=== PATIENT | female | born 1950 | race Two or more races ===

== ENCOUNTER 2020-02-14 10:01 | Inpatient (IN) | payer MEDICARE ==
[~2020-02-14] VITALS: Ht 144.8 cm; Wt 55.3 kg
--- NOTE | 2020-02-14 10:15 | NUR ---
PATIENT WAS SEEN BY MD. SHE HAS BLISTERS, RASH AND PAIN ALONG HER CHEST AND BACK WHERE THE SKIN ABNORMALITY IS.
[2020-02-14] MEDS ORDERED: HYDR-894 PO (10:24)
[2020-02-14] MEDS ORDERED: AMLO10TA7 PO (10:24)
[2020-02-14] MEDS ORDERED: BENA20TA9 PO (10:24)
[2020-02-14] MEDS ORDERED: GABAPENTIN 100 MG CAPSULE PO ONE (10:30)
[2020-02-14] MEDS ORDERED: GABAPENTIN 100 MG CAPSULE ONE (10:30)
[2020-02-14] MEDS ORDERED: ACYCLOVIR 400 MG TABLET PO ONE (10:30)
[2020-02-14] MEDS ORDERED: ACYCLOVIR 200 MG CAPSULE ONE (10:31)
[2020-02-14 10:56] LABS: BASOPHILS # (AUTO) 0.1 K/uL (0.0-8.0); BASOPHILS % (AUTO) 2.5 % (0.0-2.0); EOSINOPHILS # (AUTO) 0.2 K/uL (0.0-0.7); EOSINOPHILS % (AUTO) 4.8 % (0.0-7.0); HEMATOCRIT 28.7 % (31.2-41.9); HEMOGLOBIN 9.6 g/dL (10.9-14.3); LYMPHOCYTES # (AUTO) 0.4 K/uL (20.0-40.0); MEAN CORPUSCULAR HEMOGLOBIN 29.3 uug (24.7-32.8); MEAN CORPUSCULAR HGB CONC 34 g/dL (32.3-35.6); MEAN CORPUSCULAR VOLUME 87.6 fL (75.5-95.3); MONOCYTES # (AUTO) 0.6 K/uL (2.0-10.0); MONOCYTES % (AUTO) 13.9 % (0.0-11.0); NEUTROPHILS # (AUTO) 3.2 K/uL (1.8-8.9); NEUTROPHILS % (AUTO) 70.8 % (38.5-71.5); PLATELET COUNT (AUTO) 232 K/uL (179-408); RED BLOOD CELL COUNT(AUTO) 3.28 MIL/uL (3.63-4.92); WHITE BLOOD COUNT (AUTO) 4.5 K/uL (3.8-11.8)
[2020-02-14 10:59] LABS: CARBON DIOXIDE 16 mmol/L (21-32); CHLORIDE 108 mmol/L (98-107); CREATININE 5.2 mg/dL (0.6-1.3); GLUCOSE 137 mg/dL (74-106); POTASSIUM 6.1 mmol/L (3.5-5.1); UREA NITROGEN, BLOOD 65 mg/dL (7-18)
--- NOTE | 2020-02-14 11:39 | NUR ---
PATIENT AND FAMILY AWARE OF PENDING ADMISSION TO HOSPITAL.
[2020-02-14] MEDS ORDERED: SODIUM POLYSTYRENE SULFONATE 15 G/60 ML LIQUID UDC ONE (11:43)
[2020-02-14] MEDS ORDERED: SODIUM POLYSTYRENE SULFONATE 15 G/60 ML LIQUID UDC PO ONE (11:45)
[2020-02-14 13:39] VITALS: BP 171/73
--- NOTE | 2020-02-14 14:00 | NUR ---
Patient in from E.[facility]. AAOX4. vitals stable no c/of chest pain. sbp above 160. Admitting physician notified of pt's arrival, and elevated sbp orders received and implemented. Awaiting admission orders.
[2020-02-14 14:03] VITALS: BP 169/73
[2020-02-14] MEDS: hydrALAZINE HCL 25 MG TABLET PO PRN (14:33)
[2020-02-14 16:00] VITALS: BP 163/76
[2020-02-14] MEDS ORDERED: ACETAMINOPHEN 325 MG TABLET PO PRN (16:45)
[2020-02-14] MEDS ORDERED: HYDROCODONE/APAP 5-325MG TABLET PO PRN (16:45)
[2020-02-14] MEDS ORDERED: BISACODYL 10 MG SUPP.RECT RC PRN (17:15)
[2020-02-14] MEDS ORDERED: ONDANSETRON 4 MG/2 ML VIAL IV PRN (17:15)
--- NOTE | 2020-02-14 19:30 | NUR ---
PATIENT RECEIVED LYING IN BED WATCHING TV. AAOX3. V/S STABLE. NO S/S OF ACUTE DISTRESS. PIV INTACT AND PATENT. DENIES ANY PAIN AT THIS TIME. SAFETY MEASURES IN PLACE. SHINGLES ASSESS ON UPPER BACK, ABDOMEN, AND BREAST AREA. BLISTERS ASSESSED. WILL CONTINUE TO MONITOR AND ASSESS.
[2020-02-14 20:03] VITALS: BP 123/72
[2020-02-14 20:09] VITALS: BP 123/72
[2020-02-14] MEDS: VALACYCLOVIR HCL 500 MG TABLET PO SCH (21:52)
[2020-02-14] MEDS: ISOSORBIDE MONONITRATE 60 MG TAB.SR.24H PO SCH (21:52)
[2020-02-14] MEDS: DOCUSATE SODIUM 100 MG CAPSULE PO SCH (21:52)
[2020-02-14] MEDS: CLONIDINE HCL 0.1 MG TABLET PO SCH (22:04)
[2020-02-15 00:25] VITALS: BP 142/59
[2020-02-15 01:32] LABS: *BILIRUBIN,URIN NEGATIVE (NEGATIVE); *CLARITY,URINE SLIGHTLY CLOUDY (CLEAR); *COLOR,URINE YELLOW (YELLOW); *KETONES,URINE NEGATIVE (NEGATIVE); *UROBILINOGEN,URINE 0.2 E.U./dl (NORMAL); LEUKOCYTE ESTERASE ,URINE NEGATIVE (NEGATIVE); NITRITE, URINE NEGATIVE (NEGATIVE); PH,URINE 5.5 (5.0-8.0); UGLUCOSE NEGATIVE (NEGATIVE)
[2020-02-15 01:39] LABS: *CREATININE,URINE 66.3 mg/dL (30-125); *URINE TOTAL PROTEIN RANDOM 126.8 mg/dL (<150/24HR)
[2020-02-15 01:51] LABS: *BLOOD, URINE TRACE INTACT (NEGATIVE)
[2020-02-15 04:27] VITALS: BP 150/67
[2020-02-15] MEDS: PANTOPRAZOLE SODIUM 40 MG TABLET.DR PO SCH (06:14)
[2020-02-15] MEDS: CLONIDINE HCL 0.1 MG TABLET PO SCH ×3 (06:14→22:00)
--- NOTE | 2020-02-15 06:22 | NUR ---
no s/s of acute distress. v/s stable. denies pain. NSR on tele monitor. PIV intact and patent. will continue to monitor and assess.
[2020-02-15 06:40] LABS: BASOPHILS # (AUTO) 0.1 K/uL (0.0-8.0); BASOPHILS % (AUTO) 1.3 % (0.0-2.0); EOSINOPHILS # (AUTO) 0.2 K/uL (0.0-0.7); HEMATOCRIT 24.2 % (31.2-41.9); HEMOGLOBIN 8.2 g/dL (10.9-14.3); LYMPHOCYTES # (AUTO) 0.4 K/uL (20.0-40.0); LYMPHOCYTES % (AUTO) 10.9 % (20.5-51.5); MEAN CORPUSCULAR HEMOGLOBIN 29.7 uug (24.7-32.8); MEAN CORPUSCULAR HGB CONC 34 g/dL (32.3-35.6); MEAN CORPUSCULAR VOLUME 87.7 fL (75.5-95.3); MONOCYTES # (AUTO) 0.4 K/uL (2.0-10.0); MONOCYTES % (AUTO) 11.3 % (0.0-11.0); NEUTROPHILS # (AUTO) 2.8 K/uL (1.8-8.9); NEUTROPHILS % (AUTO) 71.5 % (38.5-71.5); PLATELET COUNT (AUTO) 202 K/uL (179-408); RED BLOOD CELL COUNT(AUTO) 2.76 MIL/uL (3.63-4.92); WHITE BLOOD COUNT (AUTO) 3.9 K/uL (3.8-11.8)
[2020-02-15 07:04] LABS: ALANINE AMINOTRANSFERASE 15 U/L (14-59); ALKALINE PHOSPHATASE 42 U/L (50-136); ASPARTATE AMINOTRANSFERASE 14 U/L (15-37); BILIRUBIN,TOTAL 0.1 mg/dL (0.2-1.0); CARBON DIOXIDE 15 mmol/L (21-32); CHLORIDE 108 mmol/L (98-107); CREATINE KINASE, TOTAL 62 U/L (26-192); CREATININE 5.3 mg/dL (0.6-1.3); GLUCOSE 100 mg/dL (74-106); MAGNESIUM 2.2 mg/dL (1.8-2.4); PHOSPHOROUS 5.4 mg/dL (2.5-4.9); POTASSIUM 6.1 mmol/L (3.5-5.1); TOTAL PROTEIN, SERUM 5.7 g/dL (6.4-8.2); UREA NITROGEN, BLOOD 69 mg/dL (7-18)
[2020-02-15 07:06] LABS: IRON, SERUM 63 ug/dL (50-175)
[2020-02-15 07:09] LABS: CHOLESTEROL 106 mg/dL (<200); HDL CHOLESTEROL 54 mg/dL (40-60); TRIGLYCERIDES 76 MG/DL (30-150)
--- NOTE | 2020-02-15 07:30 | NUR ---
RECIEVED PT LYING IN BED, AWAKE, ALERT AND ORIENTEDX3. VERY PLEASANT LADY. DENIES OF ANY DISCOMFORTS AT THIS TIME. HR IS SR- SB, DENIES ANY CP. O2 SATURATION IS 98% ON RA. PT HAS SHINGLES LOCATED ON HER RIGHT SIDE OF HER CHEST GOING TO THE RIGHT SIDE OF HER MIDBACK, LESIONS ARE BIG BLISTERS. DENIES OF ANY PAIN AT THIS TIME. AFEBRILE.
[2020-02-15 07:38] LABS: BACTERIA,URINE RARE /HPF (NONE SEEN); SQUAMOUS EPITHELIAL CELL,UR FEW /HPF (NONE SEEN)
[2020-02-15 08:00] VITALS: BP 140/62
[2020-02-15 08:10] LABS: THYROID STIMULATING HORMONE 4.426 mIU/mL (0.358-3.740)
--- NOTE | 2020-02-15 08:30 | NUR ---
PT ATE GOOD.
--- NOTE | 2020-02-15 09:00 | NUR ---
SEEN AND EXAMINED BY LAVINIA WALDEN WITH NEW ORDERS.
[2020-02-15] MEDS: VALACYCLOVIR HCL 500 MG TABLET PO SCH (09:18)
[2020-02-15] MEDS: ISOSORBIDE MONONITRATE 60 MG TAB.SR.24H PO SCH ×2 (09:18→20:49)
[2020-02-15] MEDS: AMLODIPINE 10 MG TABLET PO SCH (09:19)
[2020-02-15] MEDS ORDERED: DEXTROSE 50% 50 ML DISP.SYRIN IV ONE (10:00)
[2020-02-15] MEDS ORDERED: INSULIN REGULAR, HUMAN 300 UNIT/3 ML VIAL IV ONE (10:00)
--- NOTE | 2020-02-15 10:00 | NUR ---
D50W SLOW IVP AND INSULIN 10UNITS SLOW IVP GIVEN VIA HL RIGHT HAND G22 ORDERED. K-6.1
--- NOTE | 2020-02-15 10:41 | NUR ---
SEEN AND EXAMINED BY SINDY FOR ID CONSULT.
[2020-02-15] MEDS: BLOOD SUGAR DIAGNOSTIC 1 EACH STRIP VI SCH ×3 (11:51→21:07)
[2020-02-15 12:00] VITALS: BP 135/61
[2020-02-15] MEDS: INSULIN REGULAR, HUMAN 300 UNIT/3 ML VIAL SQ PRN ×2 (12:43→21:04)
--- NOTE | 2020-02-15 13:00 | NUR ---
ULTRASOUND OF THE KIDNEY DONE AT THE BEDSIDE.
[2020-02-15] MEDS: ACYCLOVIR IV 500 MG in IV DEXTROSE 5% 100 ML IV SCH ×2 (14:07→22:05)
[2020-02-15 16:02] VITALS: BP 111/49
[2020-02-15] MEDS: glipiZIDE 5 MG TABLET PO SCH (16:18)
[2020-02-15 20:21] VITALS: BP 120/58
[2020-02-15] MEDS: DOCUSATE SODIUM 100 MG CAPSULE PO SCH (20:49)
--- NOTE | 2020-02-15 21:00 | NUR ---
insulin 6 units not given to this patient.
[2020-02-16 04:18] VITALS: BP 135/52
[2020-02-16] MEDS: CLONIDINE HCL 0.1 MG TABLET PO SCH ×3 (06:22→21:32)
[2020-02-16] MEDS: ACYCLOVIR IV 500 MG in IV DEXTROSE 5% 100 ML IV SCH (06:23)
[2020-02-16] MEDS: PANTOPRAZOLE SODIUM 40 MG TABLET.DR PO SCH (06:34)
[2020-02-16] MEDS: BLOOD SUGAR DIAGNOSTIC 1 EACH STRIP VI SCH ×4 (06:35→21:43)
[2020-02-16] MEDS: glipiZIDE 5 MG TABLET PO SCH ×2 (06:42→17:16)
--- NOTE | 2020-02-16 07:31 | NUR ---
patient resting comfortably. AA/OX3. no s/s of acute distress. v/s stable. clonidine held last night and wasted due to low diastolic BP. morning BS was 49. interventions provided and current BS at 151. norks administered x1 for pain. tolerated well. will continue to monitor.
[2020-02-16] MEDS ORDERED: VALACYCLOVIR HCL 500 MG TABLET PO SCH (09:00)
--- NOTE | 2020-02-16 09:00 | NUR ---
Patient is AAO x 3, NO acute distress. Vital signs are stable for patient. NO complain of pain at this time. patient noted with blister and redness on right upper back and right upper chest. Denies any cough or SOB. IV line started on left hand, 22guage. IV site intact patent. Skin kept clean and dry and will continue with care.
[2020-02-16] MEDS: ISOSORBIDE MONONITRATE 60 MG TAB.SR.24H PO SCH ×2 (10:53→21:31)
[2020-02-16] MEDS: AMLODIPINE 10 MG TABLET PO SCH (10:54)
--- NOTE | 2020-02-16 11:15 | NUR ---
Patient complained of Nausea, IV Zofran 4mg/2ml administered and tolerated. Patient also administered Tylenol 650mg PO 2 tabs for back pain. will continue with care.
[2020-02-16 12:00] VITALS: BP 133/57
[2020-02-16 15:22] LABS: A/G RATIO 1.4 (0.7-1.7); ALBUMIN 3.1 g/dL (2.9-4.4); ALPHA-1-GLOBULIN 0.2 g/dL (0.0-0.4); ALPHA-2-GLOBULIN 0.7 g/dL (0.4-1.0); BETA GLOBULIN 0.7 g/dL (0.7-1.3); GAMMA GLOBULIN 0.6 g/dL (0.4-1.8); GLOBULIN, TOTAL 2.2 g/dL (2.2-3.9); M-SPIKE Not Observed g/dL (Not Observed)
[2020-02-16 16:00] VITALS: BP 142/56
[2020-02-16 16:55] LABS: BASOPHILS % (AUTO) 0.6 % (0.0-2.0); EOSINOPHILS % (AUTO) 0.6 % (0.0-7.0); HEMATOCRIT 26.3 % (31.2-41.9); HEMOGLOBIN 8.7 g/dL (10.9-14.3); LYMPHOCYTES # (AUTO) 0.4 K/uL (20.0-40.0); LYMPHOCYTES % (AUTO) 7.8 % (20.5-51.5); MEAN CORPUSCULAR HEMOGLOBIN 28.6 uug (24.7-32.8); MEAN CORPUSCULAR HGB CONC 33 g/dL (32.3-35.6); MEAN CORPUSCULAR VOLUME 86.9 fL (75.5-95.3); MONOCYTES # (AUTO) 0.4 K/uL (2.0-10.0); MONOCYTES % (AUTO) 6.7 % (0.0-11.0); NEUTROPHILS # (AUTO) 4.4 K/uL (1.8-8.9); NEUTROPHILS % (AUTO) 84.3 % (38.5-71.5); PLATELET COUNT (AUTO) 211 K/uL (179-408); RED BLOOD CELL COUNT(AUTO) 3.03 MIL/uL (3.63-4.92); WHITE BLOOD COUNT (AUTO) 5.2 K/uL (3.8-11.8)
[2020-02-16 17:08] LABS: ALANINE AMINOTRANSFERASE 17 U/L (14-59); ALKALINE PHOSPHATASE 48 U/L (50-136); ASPARTATE AMINOTRANSFERASE 19 U/L (15-37); BILIRUBIN,TOTAL 0.2 mg/dL (0.2-1.0); CARBON DIOXIDE 17 mmol/L (21-32); CHLORIDE 103 mmol/L (98-107); CREATININE 5.6 mg/dL (0.6-1.3); GLUCOSE 60 mg/dL (74-106); MAGNESIUM 1.9 mg/dL (1.8-2.4); PHOSPHOROUS 5.8 mg/dL (2.5-4.9); POTASSIUM 5.1 mmol/L (3.5-5.1); TOTAL PROTEIN, SERUM 5.9 g/dL (6.4-8.2); UREA NITROGEN, BLOOD 71 mg/dL (7-18)
[2020-02-16] MEDS: MYCOPHENOLATE MOFETIL 250 MG CAPSULE PO SCH ×2 (17:16→21:34)
--- NOTE | 2020-02-16 19:33 | NUR ---
Patient resting comfortably at this time. Due evening meds administered as ordered and scheduled. NO c/o N/V at this time. End of shift report given to PM nurse and will continue with care.
[2020-02-16 20:00] VITALS: BP 162/61
--- NOTE | 2020-02-16 20:00 | NUR ---
Patient is awake and alert, oriented to self only, forgetful.
[2020-02-16] MEDS: DOCUSATE SODIUM 100 MG CAPSULE PO SCH (21:31)
--- NOTE | 2020-02-16 21:50 | NUR ---
Patient was given 2 juices and fruit cup after glucose check.
[2020-02-17 04:00] VITALS: BP 123/59
[2020-02-17] MEDS: PANTOPRAZOLE SODIUM 40 MG TABLET.DR PO SCH (06:22)
[2020-02-17] MEDS: ACYCLOVIR IV 500 MG in IV DEXTROSE 5% 100 ML IV SCH (06:22)
[2020-02-17] MEDS: DEXTROSE 50% 50 ML DISP.SYRIN IV PRN ×2 (06:40→21:41)
[2020-02-17 06:43] LABS: BASOPHILS % (AUTO) 0.3 % (0.0-2.0); EOSINOPHILS % (AUTO) 0.1 % (0.0-7.0); HEMATOCRIT 23.7 % (31.2-41.9); HEMOGLOBIN 8.2 g/dL (10.9-14.3); LYMPHOCYTES # (AUTO) 0.1 K/uL (20.0-40.0); LYMPHOCYTES % (AUTO) 1.3 % (20.5-51.5); MEAN CORPUSCULAR HEMOGLOBIN 29.7 uug (24.7-32.8); MEAN CORPUSCULAR HGB CONC 34 g/dL (32.3-35.6); MEAN CORPUSCULAR VOLUME 86.4 fL (75.5-95.3); MONOCYTES # (AUTO) 0.3 K/uL (2.0-10.0); MONOCYTES % (AUTO) 3.5 % (0.0-11.0); NEUTROPHILS # (AUTO) 7.1 K/uL (1.8-8.9); NEUTROPHILS % (AUTO) 94.8 % (38.5-71.5); PLATELET COUNT (AUTO) 197 K/uL (179-408); RED BLOOD CELL COUNT(AUTO) 2.75 MIL/uL (3.63-4.92); WHITE BLOOD COUNT (AUTO) 7.5 K/uL (3.8-11.8)
--- NOTE | 2020-02-17 06:43 | NUR ---
Patient initial blood glucose 35. Non-responsive to name or sternal rub. Administered Dextrose 50%. patient is awake and alert after two minutes.
[2020-02-17] MEDS: CLONIDINE HCL 0.1 MG TABLET PO SCH ×3 (06:45→21:06)
[2020-02-17] MEDS: BLOOD SUGAR DIAGNOSTIC 1 EACH STRIP VI SCH ×5 (06:49→21:30)
[2020-02-17 06:58] LABS: ALANINE AMINOTRANSFERASE 17 U/L (14-59); ALKALINE PHOSPHATASE 39 U/L (50-136); ASPARTATE AMINOTRANSFERASE 17 U/L (15-37); BILIRUBIN,TOTAL 0.1 mg/dL (0.2-1.0); CARBON DIOXIDE 15 mmol/L (21-32); CHLORIDE 104 mmol/L (98-107); CREATININE 5.7 mg/dL (0.6-1.3); PHOSPHOROUS 6.2 mg/dL (2.5-4.9); POTASSIUM 5.3 mmol/L (3.5-5.1); TOTAL PROTEIN, SERUM 5.8 g/dL (6.4-8.2); UREA NITROGEN, BLOOD 74 mg/dL (7-18)
--- NOTE | 2020-02-17 07:10 | NUR ---
Patient is awake and alert. Oriented to self and place. Coherent in conversation. Drinking water and took PO medications. Rechecked BS 153
--- NOTE | 2020-02-17 07:40 | NUR ---
Reported a glucose result of [address] Infante, with New Order to Discontinue Amaryl 1mg.
[2020-02-17 07:42] LABS: GLUCOSE 33 mg/dL (74-106)
--- NOTE | 2020-02-17 07:47 | NUR ---
Endorsed glucose results to day shift RN and charge nurse.
--- NOTE | 2020-02-17 07:50 | NUR ---
Patient in bed, awake and verbally responsive. No signs of distress noted. Afebrile. No complain of Pain or discomfort. recent BS is 153, Kept clean and comfortable. remains on contact Isolation for Shingles. Proper PPE strictly Observed. Will continue to monitor.
[2020-02-17] MEDS ORDERED: GLIMEPIRIDE 2 MG TABLET PO SCH (08:00)
[2020-02-17] MEDS: ISOSORBIDE MONONITRATE 60 MG TAB.SR.24H PO SCH ×2 (08:55→21:06)
[2020-02-17] MEDS: AMLODIPINE 10 MG TABLET PO SCH (08:56)
[2020-02-17] MEDS: MYCOPHENOLATE MOFETIL 250 MG CAPSULE PO SCH ×2 (08:56→21:06)
[2020-02-17 11:43] VITALS: BP 142/64
[2020-02-17 16:00] VITALS: BP 132/87
--- NOTE | 2020-02-17 19:10 | NUR ---
Received patient awake and eating her dinner. Oriented to self and place. No signs of acute distress. No c/o pain, n/v, or SOB. Left hand IV patent and intact. Safety measures initiated and will continue to monitor.
[2020-02-17 20:37] VITALS: BP 141/43
[2020-02-17] MEDS: DOCUSATE SODIUM 100 MG CAPSULE PO SCH (21:05)
--- NOTE | 2020-02-17 21:49 | NUR ---
Patient has a blood glucose of 31. Given 3 cups of juice, and fruit. Dr Martinez is on the floor ordered D5NS at 75 and a dose of D50 now. Rechecked glucose after the juice, 70, patient is more awake, talking to the family on the phone. Given D50 per order. Will recheck in 10 min.
[2020-02-17] MEDS: IV D5/ 0.9% NACL 1,000 ML IV PRN (21:55)
--- NOTE | 2020-02-17 22:30 | NUR ---
Dr Martinez notified of blood glucose 184 after D50%, ordered to continue monitoring continue D5NS infusion, no insulin at this time.
[2020-02-18] MEDS: ACYCLOVIR IV 500 MG in IV DEXTROSE 5% 100 ML IV SCH (05:43)
[2020-02-18] MEDS: CLONIDINE HCL 0.1 MG TABLET PO SCH ×3 (05:44→23:01)
[2020-02-18 06:10] VITALS: BP 140/51
[2020-02-18] MEDS: PANTOPRAZOLE SODIUM 40 MG TABLET.DR PO SCH (06:30)
[2020-02-18] MEDS: BLOOD SUGAR DIAGNOSTIC 1 EACH STRIP VI SCH ×5 (06:56→21:16)
--- NOTE | 2020-02-18 07:00 | NUR ---
Patient lying in bed, awake, alert, and oriented. IV right forearm intact and patent. Bed in lowest position, call penaloza within reach, safety measures endorsed to oncoming nurse.
--- NOTE | 2020-02-18 07:15 | NUR ---
Patient AM BS of 46 was given juice and ate bread. Rechecked BS resulted 92
[2020-02-18] MEDS: ISOSORBIDE MONONITRATE 60 MG TAB.SR.24H PO SCH ×2 (08:25→21:14)
[2020-02-18] MEDS: MYCOPHENOLATE MOFETIL 250 MG CAPSULE PO SCH ×2 (08:25→21:14)
[2020-02-18] MEDS: AMLODIPINE 10 MG TABLET PO SCH (08:25)
--- NOTE | 2020-02-18 11:20 | NUR ---
PATIENT SEEN AND EXAMINED BY DR HUERTA WITH NEW ORDERS AND NOTED
--- NOTE | 2020-02-18 11:24 | NUR ---
BLOOD SUGAR AT THIS TIME IS 54 PATIENT IS AWAKE ALERT AND ORIENTED NO S/S OF HYPOGLYCEMIC REACTIONS AT THIS TIME MILK AND APPLE SAUCE GIVEN WILL CONTINUE TO OBSERVE.
[2020-02-18 12:00] VITALS: BP 118/53
--- NOTE | 2020-02-18 12:00 | NUR ---
BLOOD SUGAR RECHECKED AND ITS 80 LUNCH SERVED AWAKE ALERT AND ORIENTED WILL CONTINUE TO OBSERVE.
[2020-02-18 12:08] LABS: BASOPHILS % (AUTO) 0.2 % (0.0-2.0); EOSINOPHILS # (AUTO) 0.1 K/uL (0.0-0.7); EOSINOPHILS % (AUTO) 1.4 % (0.0-7.0); HEMOGLOBIN 8.1 g/dL (10.9-14.3); LYMPHOCYTES # (AUTO) 0.6 K/uL (20.0-40.0); LYMPHOCYTES % (AUTO) 9.2 % (20.5-51.5); MEAN CORPUSCULAR HGB CONC 34 g/dL (32.3-35.6); MEAN CORPUSCULAR VOLUME 86.4 fL (75.5-95.3); MONOCYTES # (AUTO) 0.5 K/uL (2.0-10.0); MONOCYTES % (AUTO) 7.3 % (0.0-11.0); NEUTROPHILS # (AUTO) 5.3 K/uL (1.8-8.9); NEUTROPHILS % (AUTO) 81.9 % (38.5-71.5); PLATELET COUNT (AUTO) 223 K/uL (179-408); RED BLOOD CELL COUNT(AUTO) 2.78 MIL/uL (3.63-4.92); WHITE BLOOD COUNT (AUTO) 6.5 K/uL (3.8-11.8)
[2020-02-18 12:22] LABS: ALANINE AMINOTRANSFERASE 20 U/L (14-59); ALKALINE PHOSPHATASE 41 U/L (50-136); ASPARTATE AMINOTRANSFERASE 18 U/L (15-37); BILIRUBIN,TOTAL 0.2 mg/dL (0.2-1.0); CARBON DIOXIDE 15 mmol/L (21-32); CHLORIDE 100 mmol/L (98-107); CREATININE 5.6 mg/dL (0.6-1.3); GLUCOSE 72 mg/dL (74-106); MAGNESIUM 1.8 mg/dL (1.8-2.4); PHOSPHOROUS 5.6 mg/dL (2.5-4.9); POTASSIUM 5.3 mmol/L (3.5-5.1); TOTAL PROTEIN, SERUM 6.1 g/dL (6.4-8.2); UREA NITROGEN, BLOOD 70 mg/dL (7-18)
[2020-02-18] MEDS: IV D5/ 0.9% NACL 1,000 ML IV PRN (13:36)
[2020-02-18 16:00] VITALS: BP 120/57
--- NOTE | 2020-02-18 16:25 | NUR ---
BLOOD SUGAR IS 38 PATIENT IS ALERT AND VERBALLY RESPONSIVE MILK AND APPLE SAUCE GIVEN AND RECHECKED AT 1654 AND ITS 45 SO MD NOTIFIED AND STAT LAB ORDERED.
--- NOTE | 2020-02-18 17:03 | NUR ---
STAT LAB DONE ORDERED AWAITING FOR RESULT
--- NOTE | 2020-02-18 17:36 | NUR ---
PER LAB THE RESULT AT THE TIME THEY FLO THE BLOOD WAS 44 BUT PATIENT HAS ALREADY STARTED EATING DINNER ATE PART OF HER EGG SAND WISH FRUIT CUP AND MILK SO I HAD TO RECHECK HER BLOOD SUGAR AGAIN BEFIRE GIVING HER THE D50 AND BLOOD SUGAR AT THIS TIME IS 64 SO I WAS UNABLE TO GIVE THE D50 BECAUSE THE PARAMETER FOR THE D60 IS LESS THAT [address] GARCIA AND LEFT HIM A MESSAGE PATIENT REMAINS ALERT STILL TRYING TO EAT HER DINNER BUT HER APPETITE IS POOR NEEDS LOTS OF ENCOURAGEMENTS TO EAT WILL CONTINUE TO OBSERVE.
[2020-02-18 20:31] VITALS: BP 126/49
[2020-02-18] MEDS: DOCUSATE SODIUM 100 MG CAPSULE PO SCH (21:14)
[2020-02-19] MEDS: IV D5/ 0.9% NACL 1,000 ML IV PRN (00:10)
[2020-02-19] MEDS: DEXTROSE 50% 50 ML DISP.SYRIN IV PRN (02:22)
--- NOTE | 2020-02-19 03:00 | NUR ---
trina peres np ordered IVF D5 TO RUN AT 75CC/HR CONTINUOUS. STOP ORDER FOR D5NS AT 75ML/HR. NO CHANGES TO ACHS. LOW BLOOD SUGAR REPORTED.
[2020-02-19] MEDS: IV D5W 1000ML 1,000 ML IV PRN ×2 (03:02→21:50)
[2020-02-19 05:46] VITALS: BP 141/63
[2020-02-19] MEDS: PANTOPRAZOLE SODIUM 40 MG TABLET.DR PO SCH (06:02)
[2020-02-19] MEDS: CLONIDINE HCL 0.1 MG TABLET PO SCH ×3 (06:02→22:54)
--- NOTE | 2020-02-19 06:05 | NUR ---
spoke with sean in pharmacy regarding abx acyclovir IV 500mg due at 0600. medication unavailable. will be available once pharmacy is able to bring it up. Addendum: 02/19/20 at 0700 by EDUAR BUTLER RN medication received and administering.
--- NOTE | 2020-02-19 06:25 | NUR ---
patient slept throughout the night. AAOX2. no s/s of acute distres noted. v/s stable. RAC PIV remain patent and intact. IVF and antibiotics administered. NO ASE of IV ABX. on RA AT 96%. all needs met. safety measures met and call light within reach. patient not eating snacks or juice placed in front of her for prevention of low BS. reports to RN, "I do not really feel like eating these days." will continue to monitor and assess.
[2020-02-19] MEDS: BLOOD SUGAR DIAGNOSTIC 1 EACH STRIP VI SCH ×4 (06:32→21:35)
[2020-02-19] MEDS: ACYCLOVIR IV 500 MG in IV DEXTROSE 5% 100 ML IV SCH (06:59)
--- NOTE | 2020-02-19 08:00 | NUR ---
Pt is in no acute distress. Pt has poor appetite no really eating her food during breakfast. PT states shes doesn't have any appetite. Noted shingles/ redness on front of her chest wall right breast are with serous drainage and Shingles/ redness on right back with serous drainage as well. Pt IV infusing as ordered. Call light is within reach.
[2020-02-19] MEDS: ISOSORBIDE MONONITRATE 60 MG TAB.SR.24H PO SCH ×2 (09:05→21:12)
[2020-02-19] MEDS: AMLODIPINE 10 MG TABLET PO SCH (09:06)
[2020-02-19] MEDS: MYCOPHENOLATE MOFETIL 250 MG CAPSULE PO SCH ×2 (09:06→21:11)
--- NOTE | 2020-02-19 11:00 | NUR ---
Ambulated pt to bathroom. Maintained isolation for shingle. Pt continent of bladder and bowel.
[2020-02-19 12:00] VITALS: BP 139/57
[2020-02-19] MEDS: INSULIN REGULAR, HUMAN 300 UNIT/3 ML VIAL SQ PRN (12:45)
[2020-02-19 16:00] VITALS: BP 151/67
--- NOTE | 2020-02-19 18:20 | NUR ---
Spoke with trina ALVAREZ gearcase assembler covering 3rd floor ms. Pt is ok to go back to [facility] living. [facility] Cristel Najera pricing coordinator in [facility]. Addendum: 02/19/20 at 1834 by CORTNEY HESTER RN WRONG PATIENT
--- NOTE | 2020-02-19 18:34 | NUR ---
Pt notified dr arango of pt not eating and poor appetite. New order for Megace received and given. Pt is in no acute distress.
[2020-02-19] MEDS: MEGESTROL ACETATE 400 MG/10 ML LIQUID UDC PO SCH (18:50)
[2020-02-19] MEDS: DOCUSATE SODIUM 100 MG CAPSULE PO SCH (21:11)
[2020-02-19 21:12] VITALS: BP 145/56
--- NOTE | 2020-02-20 05:39 | NUR ---
unable to obtain supplies for shingles culture. omar in laboratory will call when supply kit is obtained.
[2020-02-20] MEDS: CLONIDINE HCL 0.1 MG TABLET PO SCH ×3 (06:02→21:00)
[2020-02-20] MEDS: PANTOPRAZOLE SODIUM 40 MG TABLET.DR PO SCH (06:02)
[2020-02-20 06:04] VITALS: BP 176/72
--- NOTE | 2020-02-20 06:16 | NUR ---
patient AAOX3. no s/s of acute distress noted. v/s stable except for high blood pressure in the morning. medication administered for htn. no ASE and tolerated well. RFA PIV intact and patent. BS not covered last night due to frequent drop of BS during the previous night. safety precautions in place. will continue to monitor and assess.
[2020-02-20] MEDS: BLOOD SUGAR DIAGNOSTIC 1 EACH STRIP VI SCH ×4 (06:34→21:17)
[2020-02-20] MEDS: MYCOPHENOLATE MOFETIL 250 MG CAPSULE PO SCH ×2 (09:09→20:59)
[2020-02-20] MEDS: ISOSORBIDE MONONITRATE 60 MG TAB.SR.24H PO SCH ×2 (09:09→20:58)
[2020-02-20] MEDS: AMLODIPINE 10 MG TABLET PO SCH (09:10)
[2020-02-20] MEDS: MEGESTROL ACETATE 400 MG/10 ML LIQUID UDC PO SCH (09:12)
[2020-02-20] MEDS: METOPROLOL SUCCINATE XL 50 MG TAB.SR.24H PO SCH (10:41)
[2020-02-20 11:30] VITALS: BP 152/62
[2020-02-20] MEDS: IV D5W 1000ML 1,000 ML IV PRN (11:39)
[2020-02-20 12:10] LABS: BASOPHILS % (AUTO) 0.6 % (0.0-2.0); EOSINOPHILS # (AUTO) 0.3 K/uL (0.0-0.7); EOSINOPHILS % (AUTO) 5.1 % (0.0-7.0); HEMATOCRIT 24.2 % (31.2-41.9); HEMOGLOBIN 8.1 g/dL (10.9-14.3); LYMPHOCYTES # (AUTO) 0.5 K/uL (20.0-40.0); LYMPHOCYTES % (AUTO) 10.3 % (20.5-51.5); MEAN CORPUSCULAR HEMOGLOBIN 28.6 uug (24.7-32.8); MEAN CORPUSCULAR HGB CONC 33 g/dL (32.3-35.6); MEAN CORPUSCULAR VOLUME 85.5 fL (75.5-95.3); MONOCYTES # (AUTO) 0.6 K/uL (2.0-10.0); MONOCYTES % (AUTO) 11.5 % (0.0-11.0); NEUTROPHILS # (AUTO) 3.8 K/uL (1.8-8.9); NEUTROPHILS % (AUTO) 72.5 % (38.5-71.5); PLATELET COUNT (AUTO) 194 K/uL (179-408); RED BLOOD CELL COUNT(AUTO) 2.83 MIL/uL (3.63-4.92); WHITE BLOOD COUNT (AUTO) 5.3 K/uL (3.8-11.8)
[2020-02-20] MEDS: INSULIN REGULAR, HUMAN 300 UNIT/3 ML VIAL SQ PRN ×2 (12:12→17:56)
[2020-02-20 12:13] LABS: ALANINE AMINOTRANSFERASE 18 U/L (14-59); ALKALINE PHOSPHATASE 39 U/L (50-136); ASPARTATE AMINOTRANSFERASE 16 U/L (15-37); BILIRUBIN,TOTAL 0.2 mg/dL (0.2-1.0); CARBON DIOXIDE 14 mmol/L (21-32); CHLORIDE 98 mmol/L (98-107); CREATININE 4.9 mg/dL (0.6-1.3); GLUCOSE 153 mg/dL (74-106); MAGNESIUM 1.7 mg/dL (1.8-2.4); PHOSPHOROUS 6.2 mg/dL (2.5-4.9); POTASSIUM 5.4 mmol/L (3.5-5.1); TOTAL PROTEIN, SERUM 5.4 g/dL (6.4-8.2); UREA NITROGEN, BLOOD 69 mg/dL (7-18)
[2020-02-20 15:57] VITALS: BP 159/71
[2020-02-20 17:58] VITALS: BP 150/68
--- NOTE | 2020-02-20 20:00 | NUR ---
Received patient awake and alert. Patient shows no signs or symptoms of distress at this time. Vital signs stable. Wound on back appears dry at this time. Bed set to lowest position. Call light within reach. Side rails X2 are up. Will continue to monitor patient.
[2020-02-20] MEDS: IV D5/ 0.9% NACL 1,000 ML IV PRN (20:15)
[2020-02-20 20:36] VITALS: BP 144/61
[2020-02-20] MEDS: DOCUSATE SODIUM 100 MG CAPSULE PO SCH (20:59)
[2020-02-21] MEDS: CLONIDINE HCL 0.1 MG TABLET PO SCH ×3 (06:28→21:20)
[2020-02-21] MEDS: PANTOPRAZOLE SODIUM 40 MG TABLET.DR PO SCH (06:28)
[2020-02-21] MEDS: BLOOD SUGAR DIAGNOSTIC 1 EACH STRIP VI SCH ×4 (06:35→21:30)
[2020-02-21 06:39] VITALS: BP 122/65
--- NOTE | 2020-02-21 07:04 | NUR ---
Patient shows no signs or symptoms of distress at this time. Vital signs stable. Will endorse patient to day shift nurse in stable condition.
--- NOTE | 2020-02-21 07:45 | NUR ---
Received patient in bed awake, alert and oriented. No signs of respiratory distress noted, patient is saturating well on room air. IV intact and patent on right forearm 20 gauge. Patient reports no pain at this time. Safety measures in place, bed in lowest position and locked, call light and patient belongings are within reach. Will continue to observe and monitor.
[2020-02-21] MEDS: MYCOPHENOLATE MOFETIL 250 MG CAPSULE PO SCH ×2 (09:13→21:22)
[2020-02-21] MEDS: MEGESTROL ACETATE 400 MG/10 ML LIQUID UDC PO SCH (09:14)
[2020-02-21] MEDS: ISOSORBIDE MONONITRATE 60 MG TAB.SR.24H PO SCH ×2 (09:16→21:20)
[2020-02-21] MEDS: AMLODIPINE 10 MG TABLET PO SCH (09:16)
[2020-02-21] MEDS: METOPROLOL SUCCINATE XL 50 MG TAB.SR.24H PO SCH (09:16)
[2020-02-21 11:33] VITALS: BP 146/57
[2020-02-21] MEDS: IV D5/ 0.9% NACL 1,000 ML IV PRN (15:46)
[2020-02-21 16:00] VITALS: BP 137/53
[2020-02-21 19:32] LABS: BASOPHILS % (AUTO) 0.4 % (0.0-2.0); EOSINOPHILS # (AUTO) 0.1 K/uL (0.0-0.7); EOSINOPHILS % (AUTO) 2.8 % (0.0-7.0); LYMPHOCYTES # (AUTO) 0.5 K/uL (20.0-40.0); LYMPHOCYTES % (AUTO) 13.4 % (20.5-51.5); MEAN CORPUSCULAR HEMOGLOBIN 28.5 uug (24.7-32.8); MEAN CORPUSCULAR HGB CONC 33 g/dL (32.3-35.6); MEAN CORPUSCULAR VOLUME 85.1 fL (75.5-95.3); MONOCYTES # (AUTO) 0.7 K/uL (2.0-10.0); NEUTROPHILS # (AUTO) 2.7 K/uL (1.8-8.9); NEUTROPHILS % (AUTO) 66.4 % (38.5-71.5); PLATELET COUNT (AUTO) 162 K/uL (179-408); WHITE BLOOD COUNT (AUTO) 4.1 K/uL (3.8-11.8)
[2020-02-21 19:37] LABS: RED BLOOD CELL COUNT(AUTO) 2.35 MIL/uL (3.63-4.92)
[2020-02-21 19:42] LABS: ALANINE AMINOTRANSFERASE 15 U/L (14-59); ALKALINE PHOSPHATASE 35 U/L (50-136); ASPARTATE AMINOTRANSFERASE 13 U/L (15-37); BILIRUBIN,TOTAL 0.2 mg/dL (0.2-1.0); CARBON DIOXIDE 15 mmol/L (21-32); CHLORIDE 103 mmol/L (98-107); CREATININE 4.5 mg/dL (0.6-1.3); GLUCOSE 148 mg/dL (74-106); PHOSPHOROUS 5.7 mg/dL (2.5-4.9); POTASSIUM 5.7 mmol/L (3.5-5.1); UREA NITROGEN, BLOOD 66 mg/dL (7-18)
--- NOTE | 2020-02-21 19:54 | NUR ---
PATIENT CALM AND COMFORTABLE THROUGH OUT SHIFT WITH NO SIGNS OF DISTRESS; PATIENT WITH STABLE VITAL SIGNS. REPORT GIVEN TO ONCOMING NURSE.
[2020-02-21 19:55] LABS: MAGNESIUM 1.2 mg/dL (1.8-2.4)
[2020-02-21 20:00] VITALS: BP 133/57
--- NOTE | 2020-02-21 20:00 | NUR ---
Received patient awake and alert. Patient shows no signs or symptoms of distress at this time. Vital signs stable. Contact isolation for shingles. Bed set to lowest position. Call light within reach. Side rails X2 are up. Will continue to monitor patient.
--- NOTE | 2020-02-21 20:09 | NUR ---
PATIENT REFUSED INSULIN COVERAGE.
--- NOTE | 2020-02-21 20:18 | NUR ---
Received critical labs for H/H - 6.7/20.0. Also received critical magnesium level of 1.2. Dr. Rock notified and received orders.
[2020-02-21 20:36] LABS: HEMOGLOBIN 6.7 g/dL (10.9-14.3)
--- NOTE | 2020-02-21 20:38 | NUR ---
Spoke to Pedro from lab. Patient to be redrawn for type and screen. Patient is alert and oriented and is able to sign consent. Consent signed by patient. Awaiting for results.
[2020-02-21] MEDS: MAGNESIUM SULFATE/D5W 100 ML IV SCH ×3 (20:49→23:24)
[2020-02-21 21:10] LABS: LYMPHOCYTES % (MANUAL) 17 % (20-40); MONOCYTES % (MANUAL) 8 % (2-10); NEUTROPHILS % (MANUAL) 75 % (42-75)
[2020-02-21] MEDS: DOCUSATE SODIUM 100 MG CAPSULE PO SCH (21:20)
[2020-02-21] MEDS ORDERED: MAGNESIUM SULFATE/D5W 300 ML ONE (21:24)
[2020-02-21 23:01] VITALS: BP 138/57
--- NOTE | 2020-02-21 23:07 | NUR ---
Blood transfusion has started. Verified with NYLA Shelton. Vital signs stable. Will check vital signs in 15 mins. Will continue to monitor patient.
[2020-02-21 23:16] VITALS: BP 145/61
[2020-02-21] MEDS: INSULIN REGULAR, HUMAN 300 UNIT/3 ML VIAL SQ PRN (23:31)
[2020-02-22] VITALS (7 sets, daily range): BP systolic 138–165; BP diastolic 57–65
[2020-02-22] MEDS: MAGNESIUM SULFATE/D5W 100 ML IV SCH (00:31)
--- NOTE | 2020-02-22 01:52 | NUR ---
Blisters opened on right chest. Photos taken. Wound cleaned with NS and dressing was applied. Wound care consult ordered for evaluation
--- NOTE | 2020-02-22 02:20 | NUR ---
Blood transfusion completed. No signs or symptoms of distress. Will continue to monitor patient.
[2020-02-22] MEDS: CLONIDINE HCL 0.1 MG TABLET PO SCH ×2 (05:25→15:13)
[2020-02-22] MEDS: PANTOPRAZOLE SODIUM 40 MG TABLET.DR PO SCH (06:25)
[2020-02-22] MEDS: hydrALAZINE HCL 25 MG TABLET PO PRN (06:26)
[2020-02-22] MEDS: BLOOD SUGAR DIAGNOSTIC 1 EACH STRIP VI SCH ×2 (06:31→11:49)
--- NOTE | 2020-02-22 06:33 | NUR ---
Patient shows no signs or symptoms of distress at this time. Blood pressure rechecked and is 160/61. PRN hydralazine given as per MD order. Will continue to monitor patient.
[2020-02-22 06:37] LABS: BASOPHILS % (AUTO) 0.3 % (0.0-2.0); EOSINOPHILS # (AUTO) 0.2 K/uL (0.0-0.7); EOSINOPHILS % (AUTO) 3.5 % (0.0-7.0); HEMATOCRIT 26.1 % (31.2-41.9); HEMOGLOBIN 8.9 g/dL (10.9-14.3); LYMPHOCYTES # (AUTO) 0.7 K/uL (20.0-40.0); LYMPHOCYTES % (AUTO) 13.3 % (20.5-51.5); MEAN CORPUSCULAR HEMOGLOBIN 29.1 uug (24.7-32.8); MEAN CORPUSCULAR HGB CONC 34 g/dL (32.3-35.6); MEAN CORPUSCULAR VOLUME 85.4 fL (75.5-95.3); MONOCYTES # (AUTO) 0.8 K/uL (2.0-10.0); MONOCYTES % (AUTO) 15.3 % (0.0-11.0); NEUTROPHILS # (AUTO) 3.8 K/uL (1.8-8.9); NEUTROPHILS % (AUTO) 67.6 % (38.5-71.5); PLATELET COUNT (AUTO) 169 K/uL (179-408); RED BLOOD CELL COUNT(AUTO) 3.06 MIL/uL (3.63-4.92); WHITE BLOOD COUNT (AUTO) 5.6 K/uL (3.8-11.8)
[2020-02-22 06:50] LABS: CARBON DIOXIDE 13 mmol/L (21-32); CHLORIDE 103 mmol/L (98-107); CREATININE 4.2 mg/dL (0.6-1.3); GLUCOSE 103 mg/dL (74-106); PHOSPHOROUS 5.4 mg/dL (2.5-4.9); POTASSIUM 5.7 mmol/L (3.5-5.1); UREA NITROGEN, BLOOD 62 mg/dL (7-18)
[2020-02-22 07:09] LABS: VARICELLA ZOSTER IgG <135 index (Immune >165)
[2020-02-22] MEDS ORDERED: SODIUM POLYSTYRENE SULFONATE 15 G/60 ML LIQUID UDC PO ONE (08:00)
[2020-02-22] MEDS ORDERED: CLONIDINE HCL 0.1 MG TABLET PO PRN (08:00)
--- NOTE | 2020-02-22 08:00 | NUR ---
Pt received to care dozing off, wakes up easily. IV fluids are running (D5Ns at 60cc/hr). right forearm heplock is intact. Breathing is none labored. No distress. Side rails up, bed alarm is on.
[2020-02-22] MEDS: MYCOPHENOLATE MOFETIL 250 MG CAPSULE PO SCH (08:54)
[2020-02-22] MEDS: ISOSORBIDE MONONITRATE 60 MG TAB.SR.24H PO SCH (08:55)
[2020-02-22] MEDS: METOPROLOL SUCCINATE XL 50 MG TAB.SR.24H PO SCH (08:55)
[2020-02-22] MEDS: AMLODIPINE 10 MG TABLET PO SCH (08:56)
[2020-02-22] MEDS: MEGESTROL ACETATE 400 MG/10 ML LIQUID UDC PO SCH (08:56)
[2020-02-22] MEDS ORDERED: MYCO250C PO (11:32)
[2020-02-22] MEDS: INSULIN REGULAR, HUMAN 300 UNIT/3 ML VIAL SQ PRN (12:06)
--- NOTE | 2020-02-22 17:52 | NUR ---
Pt is being discharged home with her . VS stable, no distress. IV line removed, ID bracelets are taken off. Discharge teaching is done and pt verbalizes understanding.
== END 2020-02-22 18:27 | disposition home or self-care (01) | DRG 595 ==
LOC: ER 10:01 → TELE3 12:39 → MEDSURG3 02-15 20:31
PROVIDERS: ADMIT Internal Medicine; ATTEND Nurse Practitioner Acute Care
PROC: 30233N1 Transfusion of Nonautologous Red Blood Cells into Peripheral Vein, Percutaneous Approach (ICD-10-PCS; principal; 2020-02-21)
DX: B02.9 Zoster without complications (principal); N17.0 Acute kidney failure with tubular necrosis; E87.2 Acidosis; N18.4 Chronic kidney disease, stage 4 (severe); E87.1 Hypo-osmolality and hyponatremia; I13.0 Hypertensive heart and chronic kidney disease with heart failure and stage 1 through stage 4 chronic kidney disease, or unspecified chronic kidney disease; N26.9 Renal sclerosis, unspecified; E87.5 Hyperkalemia; I50.9 Heart failure, unspecified; R53.1 Weakness; Z79.899 Other long term (current) drug therapy; E11.65 Type 2 diabetes mellitus with hyperglycemia; E11.649 Type 2 diabetes mellitus with hypoglycemia without coma; E11.22 Type 2 diabetes mellitus with diabetic chronic kidney disease; E78.5 Hyperlipidemia, unspecified; D63.1 Anemia in chronic kidney disease; N28.1 Cyst of kidney, acquired; Z79.84 Long term (current) use of oral hypoglycemic drugs
CPT/HCPCS: 36415; 70030-TC; 71045; 76770; 83550; 83735; 83970; 84100; 84155; 84156; 84165; 84300; 84443; 85025; 86850; 86900; 86901; 86920; 93005; 93307; A4663; G0378; J0133; J1815; J2405; J3475; J3490; J7030; J7040; J7042; J7050; J7060; J7517; J8999; P9016-BL; P9021

== ENCOUNTER 2020-03-08 12:52 | Inpatient (IN) | payer MEDICARE ==
[~2020-03-08] VITALS: Ht 152.4 cm; Wt 68.2 kg
[~2020-03-08 12:52] MED LIST: AMLO10TA7 PO; BENA20TA9 PO; HYDR-894 PO; MYCO250C PO
--- NOTE | 2020-03-08 12:55 | NUR ---
DR Borrero at the bedside for MSE.
[2020-03-08] MEDS ORDERED: IV NORMAL SALINE 500 ML BAG IV ONE (13:00)
--- NOTE | 2020-03-08 13:10 | NUR ---
Pt has PICC line on LT upper ext, but unable to flush or draw blood. made aware.
[2020-03-08] MEDS ORDERED: ATOR10TA PO (13:12)
[2020-03-08] MEDS ORDERED: LEVO25TA9 PO (13:12)
[2020-03-08] MEDS ORDERED: LEVO75TA7 PO (13:13)
[2020-03-08] MEDS ORDERED: ATOR20TA PO (13:13)
[2020-03-08] MEDS ORDERED: ONDANSETRON 4 MG/2 ML VIAL ONE (13:25)
[2020-03-08] MEDS ORDERED: ACETAMINOPHEN 650 MG SUPP.RECT RC ONE ×2 (13:43→13:45)
[2020-03-08 13:47] LABS: BASOPHILS # (AUTO) 0.3 K/uL (0.0-8.0); BASOPHILS % (AUTO) 3.4 % (0.0-2.0); EOSINOPHILS # (AUTO) 0.2 K/uL (0.0-0.7); EOSINOPHILS % (AUTO) 2.6 % (0.0-7.0); HEMOGLOBIN 10.5 g/dL (10.9-14.3); LYMPHOCYTES # (AUTO) 0.5 K/uL (20.0-40.0); MEAN CORPUSCULAR HEMOGLOBIN 29.2 uug (24.7-32.8); MEAN CORPUSCULAR HGB CONC 33 g/dL (32.3-35.6); MONOCYTES # (AUTO) 0.8 K/uL (2.0-10.0); MONOCYTES % (AUTO) 10.6 % (0.0-11.0); NEUTROPHILS # (AUTO) 5.9 K/uL (1.8-8.9); NEUTROPHILS % (AUTO) 76.4 % (38.5-71.5); PLATELET COUNT (AUTO) 585 K/uL (179-408); WHITE BLOOD COUNT (AUTO) 7.8 K/uL (3.8-11.8)
[2020-03-08 13:53] LABS: CARBON DIOXIDE 23 mmol/L (21-32); CHLORIDE 100 mmol/L (98-107); CREATININE 5.3 mg/dL (0.6-1.3); GLUCOSE 71 mg/dL (74-106); POTASSIUM 3.7 mmol/L (3.5-5.1); UREA NITROGEN, BLOOD 65 mg/dL (7-18)
[2020-03-08] MEDS ORDERED: CEFTRIAXONE /D5W 50ML IVPB **ER PYXIS IV ONE (13:56)
[2020-03-08] MEDS ORDERED: AZITHROMYCIN 500MG/ D5W 250ML IVPB **ER PYXIS ONLY IV ONE (13:56)
[2020-03-08] MEDS ORDERED: CEFTRIAXONE 2 G in IV DEXTROSE 5% 100 ML IV ONE (14:00)
[2020-03-08] MEDS ORDERED: AZITHROMYCIN IV 500 MG in IV DEXTROSE 5% 250 ML IV ONE (14:00)
[2020-03-08 14:06] LABS: ALANINE AMINOTRANSFERASE 20 U/L (14-59); ALKALINE PHOSPHATASE 75 U/L (50-136); ASPARTATE AMINOTRANSFERASE 32 U/L (15-37); BILIRUBIN,DIRECT 0.2 mg/dL (0.0-0.2); BILIRUBIN,TOTAL 0.8 mg/dL (0.2-1.0); TOTAL PROTEIN, SERUM 6.9 g/dL (6.4-8.2)
--- NOTE | 2020-03-08 14:08 | NUR ---
Pt is more awake and verbally responsive.
[2020-03-08 14:34] LABS: *BILIRUBIN,URIN NEGATIVE (NEGATIVE); *BLOOD, URINE 2+ (NEGATIVE); *CLARITY,URINE SLIGHTLY CLOUDY (CLEAR); *COLOR,URINE YELLOW (YELLOW); *KETONES,URINE 2+ (NEGATIVE); *UROBILINOGEN,URINE 0.2 E.U./dl (NORMAL); LEUKOCYTE ESTERASE ,URINE NEGATIVE (NEGATIVE); NITRITE, URINE NEGATIVE (NEGATIVE); UGLUCOSE NEGATIVE (NEGATIVE)
[2020-03-08] MEDS ORDERED: MAGNESIUM HYDROXIDE 30 ML LIQUID UDC PO PRN (16:30)
[2020-03-08] MEDS ORDERED: CEFTRIAXONE 1 G in IV DEXTROSE 5% 50 ML IV SCH (16:30)
[2020-03-08] MEDS ORDERED: HYDROCODONE/APAP 5-325MG TABLET PO PRN (16:30)
[2020-03-08] MEDS ORDERED: AZITHROMYCIN IV 500 MG in IV DEXTROSE 5% 250 ML IV SCH (16:30)
[2020-03-08] MEDS ORDERED: ONDANSETRON 4 MG/2 ML VIAL IV PRN (16:30)
[2020-03-08] MEDS ORDERED: Z GUARD REMEDY PASTE 57 GM TUBE TOP PRN (16:30)
[2020-03-08] MEDS ORDERED: ACETAMINOPHEN 325 MG TABLET PO PRN (16:30)
[2020-03-08 16:50] LABS: BACTERIA,URINE MODERATE /HPF (NONE SEEN); SQUAMOUS EPITHELIAL CELL,UR FEW /HPF (NONE SEEN)
[2020-03-08 17:04] VITALS: BP 168/64
--- NOTE | 2020-03-08 17:42 | NUR ---
Received patient awake in stable condition from ER around 4pm with RN via stretcher. Patient confusion noted.Patient ongoing oxygen via nasal cannula at 2-3LPM. not in distress. DX: Bilateral pneumonia. covid swab and MRSA done at ER. For laboratory test tomorrow. dry scab color pink and red on the back noted. Patient is incontinent. Patient came with double lumen and left hand G20 IV site. Patient lower extremities weakness noted. Patient will start ATB treatment for pneumonia. will continue monitor
--- NOTE | 2020-03-08 19:30 | NUR ---
RECEIVED PT AWAKE, ALERT AND ORIENTEDX1 . PT IN NO ACUTE DISTRESS. PT CONFUSED. PT NEEDS REORIENTATION. PT ON NASAL CANNULA 4L. SAFETY AND COMFORT PROVIDED. WILL CONTINUE TO MONITOR.
[2020-03-08] MEDS ORDERED: HEPARIN SODIUM,PORCINE 5,000 UNITS/ML VIAL IV ONE (20:00)
[2020-03-08] MEDS ORDERED: HEPARIN/D5W DRIP 500 ML IV PRN (20:00)
[2020-03-08] MEDS ORDERED: VANCOMYCIN IV 1,000 MG in IV DEXTROSE 5% 250 ML IV ONE (20:15)
[2020-03-08 20:24] VITALS: BP 118/75
[2020-03-08] MEDS: CEFEPIME HCL 1 G in IV DEXTROSE 5% 50 ML IV SCH (20:46)
[2020-03-08] MEDS: ATORVASTATIN 20 MG TABLET PO SCH (20:48)
[2020-03-08] MEDS: MYCOPHENOLATE MOFETIL 250 MG CAPSULE PO SCH (20:48)
[2020-03-08] MEDS: ACETAMINOPHEN 325 MG TABLET PO PRN (20:51)
--- NOTE | 2020-03-08 21:00 | NUR ---
FAMILY OF PT CALLED AND WANTS UPDATE REGARDING THE PT. FAMILY ASKING FOR DOCTOR'S NUMBER. PT IN NO ACUTE DISTRESS. WILL CONTINUE TO MONITOR.
--- NOTE | 2020-03-08 23:03 | NUR ---
UPDATE DR. HANCOCK REGARDING PT CONDITION. PT BECOMING MORE CONFUSED AND OXYGEN SATURATION DECREASING FROM 97% TO 90% ON 4LPM NASAL CANNULA. DR. HANCOCK ORDERED. LASIX 40MG ONE TIME IV AND SERIAL TROPONIN. DR. JANUSZ BENOIT AWARE OF THE CONDITION OF THE PT. HE ORDERED ABG AND CHEST XRAY FOR THE PT.
[2020-03-08] MEDS ORDERED: FUROSEMIDE 40 MG/4 ML VIAL IV ONE (23:15)
[2020-03-08 23:49] LABS: ABG HCO3 23.9 mmol/L; ABG PCO2 40.7 mmHg (35.0-45.0); ABG PH 7.387 (7.350-7.450); ABG PO2 65.6 mmHg (75.0-100.0); ABG SITE RIGHT BRACHIAL; ABG TOTAL HEMOGLOBIN 9.5 G/dL (12.0-16.0); COHb 1.1 % (0.5-1.5); MetHb 0.4 % (0.0-1.5); O2Hb 90.1 % (94.0-97.0); VENT MODE Nasal Cannula
[2020-03-09] VITALS: BP 145/79
[2020-03-09 05:40] LABS: BASOPHILS # (AUTO) 0.2 K/uL (0.0-8.0); BASOPHILS % (AUTO) 2.4 % (0.0-2.0); EOSINOPHILS # (AUTO) 0.3 K/uL (0.0-0.7); EOSINOPHILS % (AUTO) 4.7 % (0.0-7.0); HEMOGLOBIN 8.9 g/dL (10.9-14.3); LYMPHOCYTES # (AUTO) 0.5 K/uL (20.0-40.0); LYMPHOCYTES % (AUTO) 7.8 % (20.5-51.5); MEAN CORPUSCULAR HEMOGLOBIN 29.9 uug (24.7-32.8); MEAN CORPUSCULAR HGB CONC 34 g/dL (32.3-35.6); MEAN CORPUSCULAR VOLUME 87.7 fL (75.5-95.3); MONOCYTES # (AUTO) 0.9 K/uL (2.0-10.0); MONOCYTES % (AUTO) 13.6 % (0.0-11.0); NEUTROPHILS # (AUTO) 4.9 K/uL (1.8-8.9); NEUTROPHILS % (AUTO) 71.5 % (38.5-71.5); PLATELET COUNT (AUTO) 504 K/uL (179-408); RED BLOOD CELL COUNT(AUTO) 2.96 MIL/uL (3.63-4.92); WHITE BLOOD COUNT (AUTO) 6.9 K/uL (3.8-11.8)
[2020-03-09 05:46] LABS: CARBON DIOXIDE 30 mmol/L (21-32); CHLORIDE 103 mmol/L (98-107); CREATININE 5.1 mg/dL (0.6-1.3); GLUCOSE 127 mg/dL (74-106); MAGNESIUM 1.7 mg/dL (1.8-2.4); PHOSPHOROUS 6.7 mg/dL (2.5-4.9); POTASSIUM 3.5 mmol/L (3.5-5.1); UREA NITROGEN, BLOOD 63 mg/dL (7-18)
--- NOTE | 2020-03-09 05:59 | NUR ---
NOTIFY doctor pullman conductor regarding blood pressure of 160/59. KEENAN AMBRIZ DNP ORDERED HYDRALAZINE 40 MG ONETIME . PT IN NO ACUTE DISTRESS. WILL CONTINUE TO MONITOR.
[2020-03-09] MEDS ORDERED: hydrALAZINE HCL 20 MG/1 ML VIAL IV ONE (06:00)
--- NOTE | 2020-03-09 07:05 | NUR ---
PT SLEPT INTERMITTENTLY. PRESCRIBED MEDICATION GIVEN AND PT TOLERATED IT WELL. SAFETY AND COMFORT PROVIDED. . PT CONFUSED BUT REDIRECTABLE. PT FOLLOWS COMMAND INCONSISTENTLY.PT ON 6L NASAL CANNULA AT 94%. PT TURNED AND REPOSITIONED. PT IV INTACT. SAFETY AND COMFORT PROVIDED. WILL ENDORSE TO INCOMING NURSE FOR CONTINUITY OF CARE.
--- NOTE | 2020-03-09 07:31 | NUR ---
SENT FAX OF THE NEW CALCULATION OF THE HEPARIN. CALLED PHARMACY TO VERIFY. WILL ENDORSE TO INCOMING NURSE.
--- NOTE | 2020-03-09 08:00 | NUR ---
received pt. resting in bed alert oriented x3 but very forgetful. pt. denies pain/ discomfort. pt. states she feels SOB, pt. denies difficulty breathing. received pt. 100% o2 sat on 6 L titrated pt. down. pt. is on 4L saturating 98%. Raised HOB. IV in L hand 20 gauge intact patent and IV in R hand 20 gauge intact patent running heparin drip. no signs/ symptoms of bleeding. safety measures in place. call light within reach. will continue to monitor pt.
[2020-03-09] MEDS: LEVOTHYROXINE SODIUM 75 MCG TABLET PO SCH (08:14)
[2020-03-09] MEDS: MYCOPHENOLATE MOFETIL 250 MG CAPSULE PO SCH ×2 (08:14→20:11)
[2020-03-09] MEDS: hydrALAZINE HCL 25 MG TABLET PO SCH (08:42)
[2020-03-09] MEDS: AMLODIPINE 10 MG TABLET PO SCH (08:43)
[2020-03-09] MEDS ORDERED: BENAZEPRIL HCL 5 MG TABLET PO SCH (09:00)
[2020-03-09] MEDS: ASPIRIN 81 MG TAB.CHEW PO SCH (09:18)
[2020-03-09] MEDS: HEPARIN SODIUM,PORCINE 5,000 UNITS/ML VIAL SQ SCH ×2 (09:22→20:10)
[2020-03-09 11:56] VITALS: BP 149/62
[2020-03-09 16:00] VITALS: BP 146/64
--- NOTE | 2020-03-09 20:00 | NUR ---
Received patient awake and alert in bed, no signs of acute distress noted. No complaints of pain or SOB noted. Vitals WNL. Patient is saturating 97% on 2L. No fevers noted. Heplock on the right and left hand intact and patent. Left upper arm midline intact. Patient is r/o for COVID. Contact and droplet precautions observed. Safety measures initiated. Bed is low and locked, call light within reach, bed alarm on. Will continue to monitor.
[2020-03-09] MEDS: ATORVASTATIN 20 MG TABLET PO SCH (20:11)
[2020-03-09] MEDS: CEFEPIME HCL 1 G in IV DEXTROSE 5% 50 ML IV SCH (20:11)
[2020-03-09 20:28] VITALS: BP 158/61
[2020-03-10 00:49] VITALS: BP 165/58
[2020-03-10] MEDS: hydrALAZINE HCL 20 MG/1 ML VIAL IV PRN ×2 (00:59→20:11)
[2020-03-10 05:53] VITALS: BP 159/79
[2020-03-10 06:38] LABS: CARBON DIOXIDE 30 mmol/L (21-32); CHLORIDE 104 mmol/L (98-107); CREATININE 4.7 mg/dL (0.6-1.3); GLUCOSE 121 mg/dL (74-106); POTASSIUM 3.4 mmol/L (3.5-5.1); UREA NITROGEN, BLOOD 56 mg/dL (7-18); VANCOMYCIN,RANDOM 25.1 ug/mL (18.0-26.0)
[2020-03-10] MEDS: LEVOTHYROXINE SODIUM 75 MCG TABLET PO SCH (08:30)
[2020-03-10] MEDS: ASPIRIN 81 MG TAB.CHEW PO SCH (08:31)
[2020-03-10] MEDS: AMLODIPINE 10 MG TABLET PO SCH (08:31)
[2020-03-10] MEDS: hydrALAZINE HCL 25 MG TABLET PO SCH (08:31)
[2020-03-10] MEDS: MYCOPHENOLATE MOFETIL 250 MG CAPSULE PO SCH ×2 (08:33→20:05)
[2020-03-10] MEDS: HEPARIN SODIUM,PORCINE 5,000 UNITS/ML VIAL SQ SCH ×2 (09:05→20:06)
[2020-03-10] MEDS: MAGNESIUM SULFATE 1 GM in IV DEXTROSE 5% 100 ML IV ONE ×2 (09:07→09:32)
[2020-03-10 09:18] LABS: MAGNESIUM 1.6 mg/dL (1.8-2.4); PHOSPHOROUS 5.8 mg/dL (2.5-4.9)
[2020-03-10 09:20] LABS: BASOPHILS # (AUTO) 0.2 K/uL (0.0-8.0); BASOPHILS % (AUTO) 2.3 % (0.0-2.0); EOSINOPHILS # (AUTO) 0.6 K/uL (0.0-0.7); EOSINOPHILS % (AUTO) 7.7 % (0.0-7.0); HEMATOCRIT 28.4 % (31.2-41.9); HEMOGLOBIN 9.6 g/dL (10.9-14.3); LYMPHOCYTES # (AUTO) 0.7 K/uL (20.0-40.0); LYMPHOCYTES % (AUTO) 8.4 % (20.5-51.5); MEAN CORPUSCULAR HGB CONC 34 g/dL (32.3-35.6); MEAN CORPUSCULAR VOLUME 88.8 fL (75.5-95.3); MONOCYTES # (AUTO) 1.2 K/uL (2.0-10.0); MONOCYTES % (AUTO) 14.5 % (0.0-11.0); NEUTROPHILS # (AUTO) 5.6 K/uL (1.8-8.9); NEUTROPHILS % (AUTO) 67.1 % (38.5-71.5); PLATELET COUNT (AUTO) 544 K/uL (179-408); WHITE BLOOD COUNT (AUTO) 8.3 K/uL (3.8-11.8)
[2020-03-10 11:39] VITALS: BP 152/70
[2020-03-10] MEDS ORDERED: FUROSEMIDE 40 MG/4 ML VIAL IV ONE (15:30)
[2020-03-10 16:07] VITALS: BP 150/61
[2020-03-10 17:13] LABS: NEUTROPHILS % (MANUAL) 74 % (42-75)
[2020-03-10 17:14] LABS: BAND % (MANUAL) 3 % (0-10); EOSINOPHILS % (MANUAL) 2 % (0-8); LYMPHOCYTES % (MANUAL) 11 % (20-40); MONOCYTES % (MANUAL) 10 % (2-10)
[2020-03-10] MEDS: CARVEDILOL 6.25 MG TABLET PO SCH (17:47)
[2020-03-10] MEDS: CEFEPIME HCL 1 G in IV DEXTROSE 5% 50 ML IV SCH (19:50)
[2020-03-10] MEDS: ATORVASTATIN 20 MG TABLET PO SCH (20:05)
[2020-03-10 20:15] VITALS: BP 157/61
--- NOTE | 2020-03-10 22:05 | NUR ---
Urine was collected via straight catheter, sent to lab.
--- NOTE | 2020-03-10 23:34 | NUR ---
Dr Gore was notified that there is no IV access and Cefepime was not infused. Advised to do nothing until morning.
[2020-03-11] VITALS (7 sets, daily range): BP systolic 138–169; BP diastolic 53–71
[2020-03-11] MEDS: CLONIDINE HCL 0.1 MG TABLET PO PRN ×2 (06:12→08:57)
[2020-03-11 06:32] LABS: BASOPHILS # (AUTO) 0.2 K/uL (0.0-8.0); BASOPHILS % (AUTO) 3.7 % (0.0-2.0); EOSINOPHILS # (AUTO) 0.5 K/uL (0.0-0.7); EOSINOPHILS % (AUTO) 7.7 % (0.0-7.0); HEMATOCRIT 27.1 % (31.2-41.9); HEMOGLOBIN 9.3 g/dL (10.9-14.3); LYMPHOCYTES # (AUTO) 0.6 K/uL (20.0-40.0); LYMPHOCYTES % (AUTO) 10.8 % (20.5-51.5); MEAN CORPUSCULAR HEMOGLOBIN 30.1 uug (24.7-32.8); MEAN CORPUSCULAR HGB CONC 34 g/dL (32.3-35.6); MEAN CORPUSCULAR VOLUME 88.1 fL (75.5-95.3); MONOCYTES % (AUTO) 17.4 % (0.0-11.0); NEUTROPHILS # (AUTO) 3.6 K/uL (1.8-8.9); NEUTROPHILS % (AUTO) 60.4 % (38.5-71.5); PLATELET COUNT (AUTO) 490 K/uL (179-408); RED BLOOD CELL COUNT(AUTO) 3.08 MIL/uL (3.63-4.92); WHITE BLOOD COUNT (AUTO) 5.9 K/uL (3.8-11.8)
[2020-03-11 06:41] LABS: NEUTROPHILS % (MANUAL) 0 % (42-75)
[2020-03-11 06:46] LABS: CARBON DIOXIDE 28 mmol/L (21-32); CHLORIDE 107 mmol/L (98-107); CREATININE 4.5 mg/dL (0.6-1.3); GLUCOSE 89 mg/dL (74-106); MAGNESIUM 1.8 mg/dL (1.8-2.4); PHOSPHOROUS 5.8 mg/dL (2.5-4.9); POTASSIUM 3.6 mmol/L (3.5-5.1); UREA NITROGEN, BLOOD 56 mg/dL (7-18); VANCOMYCIN,RANDOM 24.3 ug/mL (18.0-26.0)
--- NOTE | 2020-03-11 08:23 | NUR ---
Dr Gore in , saw patient .
[2020-03-11] MEDS: AMLODIPINE 10 MG TABLET PO SCH (08:58)
[2020-03-11] MEDS: LEVOTHYROXINE SODIUM 75 MCG TABLET PO SCH (08:58)
[2020-03-11] MEDS: ACETAMINOPHEN 325 MG TABLET PO PRN ×2 (08:58→20:12)
[2020-03-11] MEDS: CARVEDILOL 6.25 MG TABLET PO SCH ×2 (08:58→17:29)
[2020-03-11] MEDS: ASPIRIN 81 MG TAB.CHEW PO SCH (08:59)
[2020-03-11] MEDS: MYCOPHENOLATE MOFETIL 250 MG CAPSULE PO SCH ×2 (09:00→21:07)
--- NOTE | 2020-03-11 09:00 | NUR ---
son , [place] called, supportive of patient care and treatment. made comfortable , minimal discomfort from shingles, tylenol given as requested.
[2020-03-11] MEDS: HEPARIN SODIUM,PORCINE 5,000 UNITS/ML VIAL SQ SCH ×2 (09:02→20:12)
--- NOTE | 2020-03-11 10:00 | NUR ---
patient verbalized comfort from tylenol, encouraged rest in between activity , seen by PT , tolerated fair. will continue PT treatment
--- NOTE | 2020-03-11 12:30 | NUR ---
transferred to room 306
--- NOTE | 2020-03-11 14:30 | NUR ---
picc nurse , keila naranjo removed left upper arm midline, no break noted
--- NOTE | 2020-03-11 14:30 | NUR ---
midline started by picc line nurse
--- NOTE | 2020-03-11 14:30 | NUR ---
right upper arm midline #[address] tolerated well by patient
--- NOTE | 2020-03-11 18:19 | NUR ---
resting most of the shift, sleeping on and off. mild sob on exertion , bp elevated prn with meds.appetite fair, needed to be encourage to eat and drink.
--- NOTE | 2020-03-11 18:49 | NUR ---
bp rechecked 141/56 hr 63. comfortable. sleeping on and off. breathing better, o02 2l nc, pt denies any change in breathing or acute sob.
--- NOTE | 2020-03-11 19:30 | NUR ---
RECEIVED PT AWAKE, ALERT AND ORIENTEDX3. PT IN NO ACUTE DISTRESS. IV INTACT. PT ON NASAL CANULA AT 2L. SAFETY AND COMFORT PROVCIDED. WILL CONTINUE TO MONITOR.
[2020-03-11] MEDS: CEFEPIME HCL 1 G in IV DEXTROSE 5% 50 ML IV SCH (19:41)
[2020-03-11] MEDS: ATORVASTATIN 20 MG TABLET PO SCH (20:12)
[2020-03-12] VITALS: BP 130/56
[2020-03-12 04:00] VITALS: BP 164/62
[2020-03-12] MEDS: hydrALAZINE HCL 20 MG/1 ML VIAL IV PRN (04:27)
[2020-03-12 05:46] VITALS: BP 149/79
--- NOTE | 2020-03-12 06:05 | NUR ---
AT 0427H APRESOLINE IV GIVEN FOR BLOOD PRESSURE 164/62. AFTER AN HOUR BLOOD PRESSURE SHOWED 149/79. PT IN NO ACUTE DISTRESS. WILL CONTINUE TO MONITOR.
--- NOTE | 2020-03-12 06:10 | NUR ---
PT SLEPT INTERMITTENTLY. PT IN NO ACUTE DISTRESS PRESCRIBED MEDICATION GIVEN AND PT TOLERATED IT WELL. PT ON 2L OXYGEN. PT FORGETFUL AND ASKING ABOUT HER MEDICATIONS IF SHE CAN TAKE IT. TOLD HER THERE'S A TIME SCHEDULED FOR HER MEDICATIONS. SAFETY AND COMFORT PROVIDED. WILL ENDORSE TO INCOMING NURSE FOR CONTINUITY OF CARE.
[2020-03-12 06:28] LABS: CARBON DIOXIDE 28 mmol/L (21-32); CHLORIDE 108 mmol/L (98-107); CREATININE 4.4 mg/dL (0.6-1.3); GLUCOSE 104 mg/dL (74-106); POTASSIUM 3.9 mmol/L (3.5-5.1); UREA NITROGEN, BLOOD 53 mg/dL (7-18)
--- NOTE | 2020-03-12 08:00 | NUR ---
received pt. resting in bed alert oriented x2. pt. denies pain/ discomfort. pt. denies sob/ difficulty breathing. pt. on 2L NC. R UA midline int patent saline lock. safety measures in place. call light within reach. will continue to monitor pt.
[2020-03-12] MEDS: LEVOTHYROXINE SODIUM 75 MCG TABLET PO SCH (08:03)
[2020-03-12] MEDS: ASPIRIN 81 MG TAB.CHEW PO SCH (08:04)
[2020-03-12] MEDS: MYCOPHENOLATE MOFETIL 250 MG CAPSULE PO SCH ×2 (08:05→20:17)
[2020-03-12] MEDS: AMLODIPINE 10 MG TABLET PO SCH (08:07)
[2020-03-12] MEDS: HEPARIN SODIUM,PORCINE 5,000 UNITS/ML VIAL SQ SCH ×2 (08:07→20:20)
[2020-03-12] MEDS: CARVEDILOL 6.25 MG TABLET PO SCH ×2 (08:08→18:01)
[2020-03-12] MEDS ORDERED: CEFE1VIA10 IV (10:14)
[2020-03-12 11:17] VITALS: BP 150/61
[2020-03-12] MEDS: FUROSEMIDE 40 MG/4 ML VIAL IV SCH ×2 (12:41→20:17)
[2020-03-12 15:31] VITALS: BP 124/67
--- NOTE | 2020-03-12 19:30 | NUR ---
RECEIVED PT AWAKE, ALERT AND ORIENTEDX3. PT IN NO ACUTE DISTRESS. IV INTACT.PT ON NASAL CANULA AT 1L. SAFETY AND COMFORT PROVIDED.WILL CONTINUE TO MONITOR.
[2020-03-12] MEDS: CEFEPIME HCL 1 G in IV DEXTROSE 5% 50 ML IV SCH (19:34)
[2020-03-12] MEDS ORDERED: FOSFOMYCIN TROMETHAMINE 3 GM PACKET PO ONE (20:00)
[2020-03-12] MEDS: ATORVASTATIN 20 MG TABLET PO SCH (20:17)
[2020-03-12 20:43] VITALS: BP 140/62
[2020-03-13] VITALS: BP 134/68
[2020-03-13 06:03] LABS: BASOPHILS # (AUTO) 0.2 K/uL (0.0-8.0); BASOPHILS % (AUTO) 3.9 % (0.0-2.0); EOSINOPHILS # (AUTO) 0.5 K/uL (0.0-0.7); EOSINOPHILS % (AUTO) 8.4 % (0.0-7.0); HEMATOCRIT 27.1 % (31.2-41.9); HEMOGLOBIN 9.1 g/dL (10.9-14.3); LYMPHOCYTES # (AUTO) 0.7 K/uL (20.0-40.0); LYMPHOCYTES % (AUTO) 12.3 % (20.5-51.5); MEAN CORPUSCULAR HEMOGLOBIN 29.8 uug (24.7-32.8); MEAN CORPUSCULAR HGB CONC 34 g/dL (32.3-35.6); MONOCYTES # (AUTO) 0.9 K/uL (2.0-10.0); MONOCYTES % (AUTO) 15.2 % (0.0-11.0); NEUTROPHILS # (AUTO) 3.6 K/uL (1.8-8.9); NEUTROPHILS % (AUTO) 60.2 % (38.5-71.5); PLATELET COUNT (AUTO) 461 K/uL (179-408); RED BLOOD CELL COUNT(AUTO) 3.05 MIL/uL (3.63-4.92)
--- NOTE | 2020-03-13 06:26 | NUR ---
PT SLEPT INTERMITTENTLY. PT IN NO ACUTE DISTRESS. IV INTACT. PT ON NASAL CANNULA. PRESCRIBED MEDICATION GIVEN AND PT TOLERATED IT WELL.SAFETY AND COMFORT PROVIDED. ALL NEEDS ARE MET. WILL ENDORSE TO INCOMING NURSE FOR CONTINUITY OF CARE.
[2020-03-13 06:31] LABS: CARBON DIOXIDE 29 mmol/L (21-32); CHLORIDE 108 mmol/L (98-107); CREATININE 4.2 mg/dL (0.6-1.3); GLUCOSE 106 mg/dL (74-106); MAGNESIUM 1.8 mg/dL (1.8-2.4); PHOSPHOROUS 4.9 mg/dL (2.5-4.9); POTASSIUM 3.7 mmol/L (3.5-5.1); UREA NITROGEN, BLOOD 50 mg/dL (7-18)
[2020-03-13 06:46] LABS: VANCOMYCIN,RANDOM 15.9 ug/mL (18.0-26.0)
--- NOTE | 2020-03-13 08:20 | NUR ---
received pt. resting in bed echo being done. alert oriented x2. pt. denies pain/ discomfort. pt. denies sob/ difficulty breathing. pt. on 0.5 L NC titrating down. R UA midline intact patent saline lock. safety measures in place. call light within reach. will continue to monitor pt.
[2020-03-13] MEDS: FUROSEMIDE 40 MG/4 ML VIAL IV SCH ×2 (08:46→22:36)
[2020-03-13] MEDS: ASPIRIN 81 MG TAB.CHEW PO SCH (08:46)
[2020-03-13] MEDS: LEVOTHYROXINE SODIUM 75 MCG TABLET PO SCH (08:46)
[2020-03-13] MEDS: MYCOPHENOLATE MOFETIL 250 MG CAPSULE PO SCH ×2 (08:46→20:52)
[2020-03-13] MEDS: AMLODIPINE 10 MG TABLET PO SCH (08:47)
[2020-03-13] MEDS: CARVEDILOL 6.25 MG TABLET PO SCH ×2 (08:47→18:01)
[2020-03-13] MEDS: HEPARIN SODIUM,PORCINE 5,000 UNITS/ML VIAL SQ SCH ×2 (08:48→20:59)
[2020-03-13 12:00] VITALS: BP 153/58
[2020-03-13] MEDS ORDERED: VANCOMYCIN IV 500 MG in IV DEXTROSE 5% 100 ML IV ONE (13:00)
[2020-03-13 16:00] VITALS: BP 119/71
[2020-03-13 17:18] LABS: EOSINOPHILS % (MANUAL) 4 % (0-8); LYMPHOCYTES % (MANUAL) 9 % (20-40); MONOCYTES % (MANUAL) 13 % (2-10); NEUTROPHILS % (MANUAL) 70 % (42-75)
[2020-03-13 17:19] LABS: MYELOCYTES % 4 % (0-0)
[2020-03-13] MEDS: CEFEPIME HCL 1 G in IV DEXTROSE 5% 50 ML IV SCH (20:18)
[2020-03-13] MEDS: ATORVASTATIN 20 MG TABLET PO SCH (20:52)
[2020-03-13 20:58] VITALS: BP 122/68
[2020-03-14] VITALS (7 sets, daily range): BP systolic 99–160; BP diastolic 46–65
[2020-03-14] MEDS ORDERED: IV NORMAL SALINE 250 ML IV PRN (06:15)
[2020-03-14 06:30] LABS: CARBON DIOXIDE 30 mmol/L (21-32); CHLORIDE 107 mmol/L (98-107); CREATININE 4.1 mg/dL (0.6-1.3); GLUCOSE 115 mg/dL (74-106); POTASSIUM 3.7 mmol/L (3.5-5.1); UREA NITROGEN, BLOOD 48 mg/dL (7-18)
[2020-03-14] MEDS: hydrALAZINE HCL 20 MG/1 ML VIAL IV PRN ×2 (06:36→20:49)
[2020-03-14] MEDS: ASPIRIN 81 MG TAB.CHEW PO SCH (08:15)
[2020-03-14] MEDS: MYCOPHENOLATE MOFETIL 250 MG CAPSULE PO SCH ×2 (08:15→20:02)
[2020-03-14] MEDS: LEVOTHYROXINE SODIUM 75 MCG TABLET PO SCH (08:15)
[2020-03-14] MEDS: CARVEDILOL 6.25 MG TABLET PO SCH ×2 (08:15→17:16)
[2020-03-14] MEDS: AMLODIPINE 10 MG TABLET PO SCH (08:15)
[2020-03-14] MEDS: HEPARIN SODIUM,PORCINE 5,000 UNITS/ML VIAL SQ SCH ×2 (08:16→20:03)
[2020-03-14] MEDS: FUROSEMIDE 40 MG/4 ML VIAL IV SCH (08:29)
--- NOTE | 2020-03-14 18:21 | NUR ---
pt is refusing to go home md and pillowcase cleaner notified
[2020-03-14] MEDS: CEFEPIME HCL 1 G in IV DEXTROSE 5% 50 ML IV SCH (19:25)
--- NOTE | 2020-03-14 19:30 | NUR ---
RECEIVED PT AWAKE, ALERT AND ORIENTEDX3. PT IN NO ACUTE DISTRESS. IV INTACT. SAFETY AND COMFORT PROVIDED. WILL CONTINUE TO MONITOR.
[2020-03-14] MEDS: ATORVASTATIN 20 MG TABLET PO SCH (20:02)
--- NOTE | 2020-03-14 20:39 | NUR ---
CALLED OF THE PT AND GAVE NUMBER OF [place] TO CALL FOR APPEAL ([phone]). SAID HE LEFT A MESSAGE ON VOICEMAIL. PT IN NO ACUTE DISTRESS.
[2020-03-15 00:05] VITALS: BP 138/53
[2020-03-15 04:10] VITALS: BP 133/67
[2020-03-15 06:27] LABS: CARBON DIOXIDE 30 mmol/L (21-32); CHLORIDE 105 mmol/L (98-107); CREATININE 3.7 mg/dL (0.6-1.3); GLUCOSE 111 mg/dL (74-106); UREA NITROGEN, BLOOD 46 mg/dL (7-18)
--- NOTE | 2020-03-15 06:41 | NUR ---
PT SLEPT INTERMITTENTLY. PT IN NO ACUTE DISTRESS. IV INTACT. PT HAD EPISODES OF FORGETFULNESS. NEED REORIENTATION. PRESCRIBED MEDICATION GIVEN AND PT TOLERATED IT WELL. PT GIVEN APRESOLINE IV PRN FOR 158/65 AFTER TWO HOURS BP WAS 135/62. SAFETY AND COMFORT PROVIDED. WILL ENDORSE TO INCOMING NURSE FOR CONTINUITY OF CARE.
[2020-03-15] MEDS: LEVOTHYROXINE SODIUM 75 MCG TABLET PO SCH (07:57)
[2020-03-15] MEDS: AMLODIPINE 10 MG TABLET PO SCH (07:57)
[2020-03-15] MEDS: MYCOPHENOLATE MOFETIL 250 MG CAPSULE PO SCH (07:57)
[2020-03-15] MEDS: ASPIRIN 81 MG TAB.CHEW PO SCH (07:57)
[2020-03-15] MEDS: CARVEDILOL 6.25 MG TABLET PO SCH (07:57)
[2020-03-15] MEDS: HEPARIN SODIUM,PORCINE 5,000 UNITS/ML VIAL SQ SCH (08:01)
[2020-03-15 12:00] VITALS: BP 153/62
--- NOTE | 2020-03-15 14:46 | NUR ---
dc orders received noted and carried out,dc instruction and education given to the pt ,dc midline per md orders,pt said she will follow up with her pcp in one week,pt left the facility via private car in stable condition
== END 2020-03-15 14:45 | disposition home health service (06) | DRG 177 ==
LOC: ER 12:54 → TELE3 15:44
PROVIDERS: ADMIT Internal Medicine; ATTEND Internal Medicine
DX: J69.0 Pneumonitis due to inhalation of food and vomit (principal); N17.0 Acute kidney failure with tubular necrosis; I50.33 Acute on chronic diastolic (congestive) heart failure; J96.01 Acute respiratory failure with hypoxia; I21.4 Non-ST elevation (NSTEMI) myocardial infarction; I13.2 Hypertensive heart and chronic kidney disease with heart failure and with stage 5 chronic kidney disease, or end stage renal disease; G93.40 Encephalopathy, unspecified; N18.5 Chronic kidney disease, stage 5; N39.0 Urinary tract infection, site not specified; I48.92 Unspecified atrial flutter; E87.0 Hyperosmolality and hypernatremia; N26.9 Renal sclerosis, unspecified; E78.5 Hyperlipidemia, unspecified; E03.9 Hypothyroidism, unspecified; D63.1 Anemia in chronic kidney disease; E11.22 Type 2 diabetes mellitus with diabetic chronic kidney disease; D89.9 Disorder involving the immune mechanism, unspecified; I48.0 Paroxysmal atrial fibrillation; E83.9 Disorder of mineral metabolism, unspecified; B95.4 Other streptococcus as the cause of diseases classified elsewhere; Z79.4 Long term (current) use of insulin; J45.909 Unspecified asthma, uncomplicated; Z87.01 Personal history of pneumonia (recurrent); Z79.890 Hormone replacement therapy; J15.9 Unspecified bacterial pneumonia; Z86.19 Personal history of other infectious and parasitic diseases
CPT/HCPCS: 36415; 36600; 70030-TC; 71045; 82785; 83605; 83735; 84100; 84443; 85025; 85730; 86140; 87040; 87086; 93005; 93307; A4663; C1758; G0378; J0360; J0456; J0692; J0696; J1644; J1940; J2405; J3370; J3475; J7040; J7060; J7517; U0003-CS

== ENCOUNTER 2022-11-11 14:24 | Emergency (ER) | payer MEDICARE, OTHER ==
[~2022-11-11] VITALS: Ht 152.4 cm; Wt 67.6 kg
[~2022-11-11 14:24] MED LIST changes: +AMLO10TA59 PO; -AMLO10TA7 PO; +ATOR20TA PO; +CEFE1VIA10 IV; +LEVO75TA7 PO
--- NOTE | 2022-11-11 14:37 | NUR ---
DR Díaz at the bedside for MSE.
[2022-11-11] MEDS ORDERED: SUCR500T PO (14:40)
[2022-11-11] MEDS ORDERED: RENAVITE PO (14:40)
[2022-11-11] MEDS ORDERED: PATI8.4P PO (14:40)
[2022-11-11] MEDS ORDERED: ISOS60TA72 PO (14:40)
[2022-11-11 15:31] LABS: CARBON DIOXIDE 26 mmol/L (21-32); CHLORIDE 96 mmol/L (98-107); CREATININE 7.4 mg/dL (0.6-1.3); GLUCOSE 136 mg/dL (74-106); UREA NITROGEN, BLOOD 38 mg/dL (7-18)
[2022-11-11 15:38] LABS: ALANINE AMINOTRANSFERASE 16 U/L (14-59); ALKALINE PHOSPHATASE 108 U/L (50-136); ASPARTATE AMINOTRANSFERASE 19 U/L (15-37); BILIRUBIN,TOTAL 0.5 mg/dL (0.2-1.0); TOTAL PROTEIN, SERUM 8.3 g/dL (6.4-8.2)
[2022-11-11 16:03] LABS: HEMATOCRIT 33.2 % (31.2-41.9); MEAN CORPUSCULAR HEMOGLOBIN 32.6 uug (24.7-32.8); MEAN CORPUSCULAR VOLUME 96.2 fL (75.5-95.3); PLATELET COUNT (AUTO) 325 K/uL (179-408)
--- NOTE | 2022-11-11 17:58 | NUR ---
Patient discharged to home in stable condition. Written and verbal after care instructions given. Patient verbalizes understanding of instructions. Stressed follow up or return to ER for worsening s/s.
== END 2022-11-11 17:59 | disposition home or self-care (01) ==
LOC: ER 14:24
DX: R22.31 Localized swelling, mass and lump, right upper limb (principal); I48.91 Unspecified atrial fibrillation; E78.5 Hyperlipidemia, unspecified; E03.9 Hypothyroidism, unspecified; I10 Essential (primary) hypertension; Z79.2 Long term (current) use of antibiotics; Z79.899 Other long term (current) drug therapy
CPT/HCPCS: 36415; 85025; 93931-RT; A4663